=== PATIENT | female | born 1970 | race Hispanic/Latino ===

== ENCOUNTER 2023-11-09 16:32 | Emergency (ER) | payer OTHER ==
[2023-11-09] VITALS (13 sets, daily range): BP systolic 123–151; BP diastolic 73–94
[~2023-11-09] VITALS: Ht 149.9 cm; Wt 55.0 kg
[~2023-11-09 16:32] MED LIST: HYDROCHLOROT12.5 M1 OR; METFORMIN500 M1 OR; MOTRIN400 MG OR; NAPROSYN500 MG OR; NAPROXEN SOD550 MG OR; PROMETHAZINE25 MG OR; UNKNOWN DIABETIC MED
[2023-11-09] MEDS ORDERED: KETOROLAC TROMETHAMINE 30 MG/ML SDV IV ONE (16:45)
[2023-11-09] MEDS ORDERED: DiphenhydrAMINE HCL 50 MG/ML SDV IV ONE (16:45)
[2023-11-09] MEDS ORDERED: METOCLOPRAMIDE HCL 10 MG/2 ML SDV IV ONE (16:45)
[2023-11-09 16:59] LABS: BASO% 0.2 % (0-3); EOS% 1.8 % (0-8); LYMPH% 39.3 % (15-41); MEAN CELL VOLUME 84.1 fL CALC (80.0-100.0); MEAN CORPUSCULAR HGB 29.3 pG CALC (26.0-32.0); MEAN CORPUSCULAR HGB CONC 34.8 g/dL CAL (32.0-36.0); MONO% 5.4 % (2-13); NEUT# 3.53 thou/uL (2.00-7.15); NEUT% 53.3 % (42-76); RED BLOOD COUNT 5.23 mill/uL (4.20-5.60); RED CELL DISTRI WIDTH 11.5 % (11.5-15.5)
[2023-11-09 17:01] LABS: HEMOGLOBIN 15.3 g/dl (12.0-16.0)
[2023-11-09 17:11] LABS: CREATININE 0.4 mg/dL (0.5-1.0); TOTAL PROTEIN 8.3 g/dL (6.3-8.2)
[2023-11-09 17:16] LABS: ALBUMIN 4.9 g/dL (3.2-5.0); BILIRUBIN, TOTAL 0.6 mg/dL (0.02-1.3); POTASSIUM 4.1 mmol/l (3.5-5.1)
[2023-11-09] MEDS ORDERED: ONDANSETRON HCl 4 MG/2 ML SDV IV ONE (17:45)
[2023-11-09 18:32] LABS: URINE BILIRUBIN - DIPSTICK Negative (NEGATIVE); URINE BLOOD DIPSTICK Trace-intact (NEGATIVE); URINE GLUCOSE - DIPSTICK 500 mg/dL (NEGATIVE); URINE KETONE 15 mg/dL (NEGATIVE); URINE LEUK ESTERASE Negative (NEGATIVE); URINE NITRITE - DIPSTICK Negative (Negative); URINE PH 5.5 (4.5-8.0); URINE PROTEIN - DIPSTICK Negative (NEG-TRACE); URINE SPECIFIC GRAVITY 1.015; URINE UROBILINOGEN - DIPSTICK 0.2 E.U./dL (0.2)
[2023-11-09 18:33] LABS: URINE COLOR Yellow
[2023-11-09] MEDS ORDERED: METHOCARBAMOL500 MG PO (19:19)
[2023-11-09] MEDS ORDERED: MECLIZINE 2525 MG PO (19:19)
[2023-11-09] MEDS ORDERED: NAPROXEN500 MG PO (19:19)
== END 2023-11-09 19:30 | disposition home or self-care (01) | DRG 103 ==
LOC: ED 16:32
PROVIDERS: Nurse Practitioner
DX: R51.9 Headache, unspecified (principal); E11.9 Type 2 diabetes mellitus without complications; R42 Dizziness and giddiness; Z79.84 Long term (current) use of oral hypoglycemic drugs